=== PATIENT | female | born 1950 | race Caucasian/White ===

== ENCOUNTER 2016-06-22 21:19 | Emergency (ER) | payer MEDICARE ==
[~2016-06-22] VITALS: Ht 170.2 cm; Wt 111.4 kg
[2016-06-22 21:28] VITALS: BP 155/87; PULSE 97; RESP 20; O2SAT 96
--- NOTE | 2016-06-22 22:00 | ED.REPORT ---
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 She had been a passenger in the car and had been driving since 12:00. The pain worsens when she lays on the side of her leg. The pt denies fever, chills, chest pain, shortness of breath, and erythema. She also denies recent trauma but did walk more than usual yesterday. The pt takes 1600 Gabapentin daily at home and took hydrocodone at 19:30 today with no relief. Nursing Notes Stated Complaint: LT LEG PAIN Chief Complaint: Extremity Trauma Nursing Notes Reviewed: Yes Allergies: Coded Allergies: iodine (Verified Allergy, Unknown, 06/22/16) General Time Seen by MD: 21:54 Chief Complaint Other (Left leg pain) Hx Obtained From: Patient Arrived By: Walk-in Onset Occurred: 5 - 8 hours ago Symptom Duration: Since onset Recent Healthcare: No recent doctor visit, No recent hospitalization Similar Sx Previous: No Past Medical History Past Medical History Notes: PCP: Gianni Canchola Past Medical History chronic back pain with pain management contract Charcot diabetes Past Surgical History BTK 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 Respiratory: Denies: Non-productive cough, Shortness of breath Cardiovascular: Denies: Chest pain Physical Exam Initial Vital Signs Vital Signs (First) Date Time Temp Pulse Resp B/P Pulse Ox O2 Delivery O2 Flow Rate FiO2 06/22/16 21:28 36.2 97 20 155/87 96 Room Air Initial VS: Reviewed Lower Extremity / Pelvis / MS: Atraumatic, Full range of motion full painless range of motion of the left knee 2 cm diameter area of ecchymosis on left lateral mid saba 2+ DP pulse sensation and motor intact no erythema or edema Ankle / Foot: Atraumatic, Full range of motion General/Constitutional: Awake, Alert appears uncomfortable Respiratory / Chest: Atraumatic, Breath sounds NL, Breath sounds = bilat, No respiratory distress Cardiovascular: Heart rate NL, Regular rhythm, Heart sounds NL Skin: Atraumatic, Color NL, No rash, Warm, Dry Neurologic: Oriented X3, Speech NL Head / Eyes: Atraumatic, Normocephalic, PERRL, EOMI ENT: Atraumatic, Mucous membranes moist Neck: Atraumatic, Supple, Full range of motion Abdomen: Atraumatic, Soft, Non-tender Back: Atraumatic, Full range of motion Upper Extremity / MS: Atraumatic, Full range of motion Psychiatric: Affect NL, Mood NL Interpretation & Diagnostics Interpretation & Diagnostics: US DVT: CONCLUSION: No evidence of dep venous thrombosis of left lower extremity. Re-Eval/Medical Decision Med Decision/Clinical Course 65-year-old female with past medical history of Charcot foot here with left leg pain which started today while she was driving a long distance. She is in a pain contract for chronic pain. Differential diagnosis includes but is not limited to DVT versus cellulitis versus muscle cramping versus drug-seeking behavior. Patient shows no overt signs of cellulitis at this time. Her skin exam is completely normal, aside from a small bruise on her leg. Her DVT study was negative. I offered her Neurontin for her pain, however, she takes it already. She will follow up with her primary care physician, and has been given very strict return precautions. Re-Evaluation/Progress : Time of Eval: 23:34 Patient Status: Condition improved Re-Evaluation/Progress Note: Pt rechecked. Discussed diagnosis and plan to discharge. Pt understands and agrees with the plan. All questions were answered. Counseled Regarding: Diagnosis, Lab results, Need for follow-up, When/why to return to ED Discharge & Departure Impression: Primary Impression: Left leg pain Disposition: Home Discharge Condition All VS Reviewed: Yes Condition: Stable Additional Instructions: Thank you for entrusting us with your care today. Your ultrasound was normal. Please follow with your Primary Care Physician in a few days. Return to the Emergency Department in case of fever, chills or any other worsening symptoms. Referrals: [facility] Scribe Attestation Portion of this note were transcribed by Yung Lino. I, Dr. Perez, personally performed the history,physical exam and medical decision- making; I reviewed and confirmed the accuracy of the information in transcribed note. Signed by Yung Clayton and Katelyn Lino, Scribe. 06/23/2016 and 0023. copies to: [facility] Lizbeth Perez MD Jun 22, 2016 22:00 Yung Clayton Jun 22, 2016 22:08 FRANKY LINO Jun 23, 2016 00:05
[2016-06-22] MEDS ORDERED: oxyCODONE-Acetamin 5-325 mg Tablet PO ONE (22:10)
--- NOTE | 2016-06-23 10:02 | DRSVH ---
PROCEDURE: US VEINOUS LEG DUPLEX UNILATERAL, LEFT INDICATIONS: leg pain TECHNIQUE: Real-time imaging, as well as color and pulse Doppler interrogation, were performed of the lower extr emity deep veins from the inguinal ligament to the popliteal fossa. COMPARISON: None. FINDINGS: The deep veins are normally compressible, and free of intraluminal thrombus. Color and pu lse Doppler demonstrate normal phasic intraluminal flow. There is normal augmentation response to di stal compression maneuver. IMPRESSION: No deep venous thrombosis identified within the left lower extremity. Dictated by: Marquise YU Interpreted: Shagufta Strong MD on 06/23/2016 at 10:01 Transcribed by: [email or web address] on 06/23/2016 at 10:01 Approved by: Shagufta Strong M.D. on 06/23/2016 at 17:12
== END 2016-06-22 23:44 | disposition home or self-care (01) ==
LOC: SED 21:19
DX: M79.605 Pain in left leg (principal); E11.9 Type 2 diabetes mellitus without complications; I10 Essential (primary) hypertension; Z98.890 Other specified postprocedural states; Z88.8 Allergy status to other drugs, medicaments and biological substances; Z89.511 Acquired absence of right leg below knee; Z89.422 Acquired absence of other left toe(s)